=== PATIENT | male | born 1980 | race African-American/Black ===

== ENCOUNTER 2023-05-19 00:07 | Inpatient (IN) | payer MEDICARE, SELFPAY ==
[2023-05-19] MEDS ORDERED: Morphine 4 MG/ML VIAL ONE (01:27)
[2023-05-19] MEDS ORDERED: Ondansetron PF 4 MG/2 ML Vial ONE (01:28)
[2023-05-19 01:54] LABS: #Eosinphils 0.1 10x3/uL (0.0-0.5); #Monocytes 0.6 10x3/uL (0.0-1.1); #Neutrophils 5.8 10x3/uL (1.5-8.4); %Basophils 0.2 % (0.0-2.0); %Eosinophils 1.2 % (0.0-6.0); %Lymphocytes 21.6 % (18.0-47.0); %Monocytes 6.9 % (0.0-10.0); %Neutrophils 69.6 % (40.0-75.0); Hematocrit 34.5 % (38.8-50.0); Hemoglobin 11.6 g/dL (13.5-17.5); Mean Corpuscular HGB CONC 33.6 g/dL (32.0-36.0); Mean Corpuscular Hemoglobin 30.4 pg (27.0-33.0); Mean Corpuscular Volume 90.3 fl (81.2-95.1); Mean Platelet Volume 9.1 fl (7.4-10.4); Platelet Count 554 10x3/uL (150-450); RBC Distribution Width 13.6 % (11.5-14.5); Red Blood Cell (RBC) Count 3.82 10x6/uL (4.32-5.72); White Blood Cell (WBC) Count 8.3 10x3/uL (3.5-10.5)
[2023-05-19 02:07] LABS: ALT (SGPT) 178 U/L (8-55); AST (SGOT) 43 U/L (5-34); Albumin 4.3 g/dL (3.5-5.0); Alkaline Phosphatase 52 U/L (40-110); Anion Gap 15 mmol/L (10-20); BUN (Urea Nitrogen) 16 mg/dL (8.9-20.6); Bilirubin, Total 0.6 mg/dL (0.2-1.2); Calc. Creatinine Clearance 0 mL/min (70-130); Calcium 9.1 mg/dL (7.8-10.44); Carbon Dioxide 20 mmol/L (22-29); Chloride 108 mmol/L (98-107); Estimated GFR 77; Globulin 2.9 g/dL (2.4-3.5); Glucose 99 mg/dL (70-105); Lipase 29 U/L (8-78); Potassium 3.9 mmol/L (3.5-5.1); Protein, Total 7.2 g/dL (6.0-8.3); Sodium 139 mmol/L (136-145)
[2023-05-19 03:19] LABS: Bilirubin Neg (Negative); Blood, Urine 10 (Negative); Clarity Clear (Clear); Glucose, Urine (Dipstick) Normal (Negative); Ketone, Urine 50 mg/dL (Negative); Leukocyte 25 (Negative); Nitrite Negative (Negative); Protein, Urine (Dipstick) 15 mg/dl (Neg-Trace)
[2023-05-19 03:24] LABS: CAUTI Indications for Culture Pelvic or flank pain; RBC/HPF 0-3 HPF (0-3); Squamous Epithelial 0-3 HPF (0-3); WBC/HPF 0-3 HPF (0-3)
[2023-05-19 03:25] LABS: Bacteria/HPF None Seen HPF (None Seen); Urine Culture Reflex No No
[2023-05-19 07:52] VITALS: BMI 34.4
[2023-05-19] MEDS ORDERED: hydrALAZINE 20 MG/ML VIAL SLOW IVP PRN (09:07)
[2023-05-19] MEDS ORDERED: Iopamidol 300 61% 100 ML VIAL FS ONE (09:11)
[2023-05-19] MEDS ORDERED: Nitroglycerin 0.4 MG TAB (25 Tab Bottle) SL PRN (09:29)
[2023-05-19] MEDS: Sodium Chloride 0.9% 1,000 ML IV SCH (10:48)
[2023-05-19] MEDS: Morphine 4 MG/ML VIAL SLOW IVP PRN (10:49)
[2023-05-19] MEDS: HYDROcodone/Acetaminophen 7.5/325 mg Tablet PO PRN (12:47)
[2023-05-19] MEDS: Prazosin HCl 1 MG CAP PO SCH (20:37)
[2023-05-19] MEDS: Famotidine/PF 20 mg/2ml Vial SLOW IVP SCH (20:37)
[2023-05-19] MEDS: traZODone HCl 50 MG TAB PO SCH (21:15)
[2023-05-20 03:44] LABS: #Eosinphils 0.2 10x3/uL (0.0-0.5); #Monocytes 0.6 10x3/uL (0.0-1.1); #Neutrophils 5.4 10x3/uL (1.5-8.4); %Basophils 0.4 % (0.0-2.0); %Lymphocytes 21.1 % (18.0-47.0); %Monocytes 7.2 % (0.0-10.0); %Neutrophils 68.7 % (40.0-75.0); Hematocrit 33.7 % (38.8-50.0); Hemoglobin 11.4 g/dL (13.5-17.5); Mean Corpuscular HGB CONC 33.8 g/dL (32.0-36.0); Mean Corpuscular Hemoglobin 30.4 pg (27.0-33.0); Mean Corpuscular Volume 89.9 fl (81.2-95.1); Mean Platelet Volume 8.8 fl (7.4-10.4); Platelet Count 561 10x3/uL (150-450); RBC Distribution Width 13.2 % (11.5-14.5); Red Blood Cell (RBC) Count 3.75 10x6/uL (4.32-5.72); White Blood Cell (WBC) Count 7.9 10x3/uL (3.5-10.5)
[2023-05-20 03:53] LABS: ALT (SGPT) 116 U/L (8-55); AST (SGOT) 24 U/L (5-34); Albumin 3.9 g/dL (3.5-5.0); Alkaline Phosphatase 48 U/L (40-110); Anion Gap 12 mmol/L (10-20); BUN (Urea Nitrogen) 8 mg/dL (8.9-20.6); Bilirubin, Total 0.4 mg/dL (0.2-1.2); Calc. Creatinine Clearance 127 mL/min (70-130); Calcium 8.8 mg/dL (7.8-10.44); Carbon Dioxide 21 mmol/L (22-29); Chloride 108 mmol/L (98-107); Estimated GFR 89; Globulin 2.5 g/dL (2.4-3.5); Glucose 113 mg/dL (70-105); Potassium 4.1 mmol/L (3.5-5.1); Protein, Total 6.4 g/dL (6.0-8.3); Sodium 137 mmol/L (136-145)
[2023-05-20 10:39] LABS: #Eosinphils 0.2 10x3/uL (0.0-0.5); #Monocytes 0.6 10x3/uL (0.0-1.1); #Neutrophils 6.6 10x3/uL (1.5-8.4); %Basophils 0.3 % (0.0-2.0); %Eosinophils 1.6 % (0.0-6.0); %Monocytes 6.4 % (0.0-10.0); %Neutrophils 70.4 % (40.0-75.0); Hematocrit 37.6 % (38.8-50.0); Mean Corpuscular HGB CONC 31.9 g/dL (32.0-36.0); Mean Corpuscular Hemoglobin 30.4 pg (27.0-33.0); Mean Corpuscular Volume 95.2 fl (81.2-95.1); Mean Platelet Volume 8.9 fl (7.4-10.4); Platelet Count 562 10x3/uL (150-450); RBC Distribution Width 13.8 % (11.5-14.5); Red Blood Cell (RBC) Count 3.95 10x6/uL (4.32-5.72); White Blood Cell (WBC) Count 9.4 10x3/uL (3.5-10.5)
[2023-05-20] MEDS: Losartan 25 MG TAB PO SCH (10:50)
[2023-05-20] MEDS: Amlodipine 10 MG TAB PO SCH (10:50)
[2023-05-20] MEDS: Enoxaparin 40 MG (0.4 mL) SYRINGE SC SCH (10:50)
[2023-05-20] MEDS: Ketorolac Tromethamine 30 MG (1 mL) VIAL IVP PRN (21:00)
[2023-05-21] MEDS: Hydrocodone-Acetamin 15 ML UDCUP PO PRN (20:54)
[2023-05-22] MEDS: Ondansetron PF 4 MG/2 ML Vial IVP PRN (09:26)
[2023-05-22 22:46] VITALS: BP 127/76; TEMP 97.8
== END 2023-05-23 03:50 | disposition home or self-care (01) | DRG 389 ==
LOC: CSHERS 00:07 → CSHTELE 07:06 → OBSVTOIN 05-22 14:52
PROVIDERS: ADMIT Surgery; ATTEND Surgery
DX: K56.600 Partial intestinal obstruction, unspecified as to cause (principal); T81.30XA Disruption of wound, unspecified, initial encounter; I10 Essential (primary) hypertension; M48.00 Spinal stenosis, site unspecified; F32.A Depression, unspecified; F43.10 Post-traumatic stress disorder, unspecified; T14.8XXA Other injury of unspecified body region, initial encounter; K56.7 Ileus, unspecified; Y83.8 Other surgical procedures as the cause of abnormal reaction of the patient, or of later complication, without mention of misadventure at the time of the procedure
CPT/HCPCS: 36415; 71045; 74018; 74177; 80053; 81001; 83605; 83690; 85025; 87040; 93005; 96372; 96374; 96375; 96376; 97139; G0378; J1650; J1885; J2270; J2405; J7050; Q9967; S0028

== ENCOUNTER 2025-02-19 15:23 | Emergency (ER) | payer MEDICARE ==
[2025-02-19] MEDS ORDERED: Aspirin Chewable 81 MG TAB ONE (15:54)
[2025-02-19 16:22] LABS: #Basophils Less than 0.03 10x3/uL (0.0-0.2); #Eosinophils 0.07 10x3/uL (0.0-0.5); #Monocytes 0.42 10x3/uL (0.0-1.1); #Neutrophils 2.28 10x3/uL (1.5-8.4); %Basophils 0.2 % (0.0-2.0); %Eosinophils 1.6 % (0.0-6.0); %Lymphocytes 36.3 % (18.0-47.0); %Monocytes 9.6 % (0.0-10.0); %Neutrophils 52.1 % (40.0-75.0); Hematocrit 40.4 % (38.8-50.0); Hemoglobin 13.5 g/dL (13.5-17.5); Mean Corpuscular Hemoglobin 31.0 pg (27.0-33.0); Mean Corpuscular Volume 92.7 fL (81.2-95.1); Platelet Count 270 10x3/uL (150-450); Red Blood Cell (RBC) Count 4.36 10x6/uL (4.32-5.72); White Blood Cell (WBC) Count 4.38 10x3/uL (3.5-10.5)
[2025-02-19 16:44] LABS: ALT (SGPT) 12 U/L (Less than 45); AST (SGOT) 13 U/L (11-34); Albumin 4.0 g/dL (3.1-4.5); Alkaline Phosphatase 52 U/L (40-110); Anion Gap 12 mmol/L (10-20); BUN (Urea Nitrogen) 11 mg/dL (8.9-20.6); Bilirubin, Total 0.4 mg/dL (0.3-1.2); Calc. Creatinine Clearance 0 mL/min (70-130); Calcium 9.3 mg/dL (7.8-10.44); Carbon Dioxide 26 mmol/L (22-29); Chloride 109 mmol/L (98-107); Globulin 2.6 g/dL (2.4-3.5); Glucose 100 mg/dL (70-105); Lipase 29 U/L (8-78); Potassium 4.6 mmol/L (3.5-5.1); Sodium 142 mmol/L (136-145)
[2025-02-19 16:49] LABS: Troponin I Less than 0.010 ng/mL (< 0.028)
[2025-02-19] MEDS ORDERED: diphenhydrAMINE 50 MG/ML VIAL ONE (16:57)
[2025-02-19] MEDS ORDERED: Metoclopramide HCl 10 MG (2 mL) VIAL ONE (16:57)
[2025-02-19 19:57] LABS: Troponin I Less than 0.010 ng/mL (< 0.028)
== END 2025-02-19 19:56 | disposition home or self-care (01) ==
LOC: CSHERS 15:23
DX: R07.89 Other chest pain (principal); I10 Essential (primary) hypertension; I25.2 Old myocardial infarction; Z55.6 Problems related to health literacy
CPT/HCPCS: 71045; 80053; 83690; 83880; 84484 ×2; 85025; 85379; 93005; 94760; J1200; J2765; 36415; 96374; 96375